=== PATIENT | female | born 1995 | race Caucasian/White ===

== ENCOUNTER → 2024-01-15 08:18 | Outpatient (CLI) | payer OTHER, SELFPAY ==
--- NOTE | 2024-01-15 12:03 | DI.MRI.S_ITS ---
PROCEDURE: MR KNEE LT WO CON INDICATIONS: KNEE PAIN TECHNIQUE: Noncontrast sagittal PD fast spin echo and T2 fast spin echo with fat saturation, sagittal 3-D FLASH with fat saturation; coronal T1 spin echo and PD fast spin echo with fat saturation, and axial PD fast spin echo with fat saturation through the knee. COMPARISON: None. FINDINGS: Image quality: Excellent. Anterior cruciate ligament: Intact. Posterior cruciate ligament: Intact. Medial collateral ligament: Intact. Lateral collateral ligament: Intact. Medial meniscus: Complex tearing of the medial meniscus with a horizontal oblique component at the posterior horn extending to the middle third of the tibial articular surface. A small inferiorly displaced meniscal flap component is seen at the body with meniscal tissue extending into the medial tibial gutter. Lateral meniscus: Intact. Medial and lateral tendons: The semimembranosus tendon insertions appear intact. Visualized portions of the pes anserinus tendons appear normal. The popliteus tendon is intact. Iliotibial band appears normal. Anterior structures: Mild patellar tendinosis. Distal quadriceps tendon is intact. No patellar subluxation. No femoral trochlear dysplasia or ventral trochlear prominence. No edema in the infrapatellar fat pad. Bones and cartilage: No bone marrow contusions or fractures. Medial femorotibial cartilage: Intact. Lateral femorotibial cartilage: Intact. Patellofemoral cartilage: Intact. Soft tissues: Moderate joint effusion. Trace medial popliteal cyst. The musculature surrounding the knee is normal in bulk. Varicose veins are noted in the lateral subcutaneous tissues. IMPRESSION: 1. Complex tearing of the medial meniscus including a horizontal oblique component at the posterior horn extending to the middle third of the tibial articular surface and a small inferiorly displaced meniscal flap component at the meniscal body extending to the medial tibial gutter. 2. Cruciate and collateral ligaments are intact. No acute trabecular bone injury. No focal cartilage defect. 3. Mild patellar tendinosis. 4. Moderate joint effusion. Approved by: Jericho Mane M.D. on 01/15/2024 at 14:57
== END ==
LOC: MRI 08:20
PROVIDERS: Referring Provider Family Medicine; Visit Provider Family Medicine
DX: S83.232A Complex tear of medial meniscus, current injury, left knee, initial encounter (principal); M25.462 Effusion, left knee; X58.XXXA Exposure to other specified factors, initial encounter
CPT/HCPCS: 73721